=== PATIENT | male | born 1995 | race African-American/Black ===

== ENCOUNTER 2022-04-09 10:02 | Emergency (ER) | payer MEDICAID, SELFPAY ==
[2022-04-09 10:11] VITALS: BP 147/104; PULSE 65; RESP 18; TEMP 36.9; O2SAT 60; BMI 18.6
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
[2022-04-09 10:52] LABS: Appearance Urine Clear (Clear); Bilirubin Urine Negative (Negative); Blood Urine Trace-intact (Negative); Color Urine Yellow (Yellow); Glucose Urine Negative (Negative); Ketones Urine Trace (Negative); Leukocyte Esterase Urine Negative (Negative); Nitrite Urine Negative (Negative); Protein Urine Trace (Negative); Specific Gravity Urine 1.025 (1.000-1.030); pH Urine 6.5 (5.0-8.5)
--- NOTE | 2022-04-09 10:58 | ED.NURSE ---
Patient stated that he is homeless. His granny is letting him stay with her for now but would like to talk to a director of social media marketing to get more information on shelters. Call placed to geriatric social work professor.
[2022-04-09 11:04] LABS: Amphetamine Screen Urine Negative (Negative); Barbiturate Screen Urine Negative (Negative); Benzodiazepines Screen Urine Negative (Negative); Cannabinoid Screen Urine POSITIVE (Negative); Cocaine Screen Urine Negative (Negative); Methadone Screen Urine Negative (Negative); Methamphetamines Screen Urine Negative (Negative); Opiate Screen Urine Negative (Negative); Oxycodone Screen Urine Negative (Negative); Phencyclidine Screen Urine Negative (Negative); Tricyclic Antidepressant Urine Negative (Negative)
[2022-04-09 11:10] LABS: RBC Urine 0-2 (0-2); WBC Urine 0-2 (0-5)
--- NOTE | 2022-04-09 11:14 | ED.NURSE ---
Patient complaining about the bottom of feet hurting. Offered ice and a pillow to see if this helps. Patient accepted this intervention.
--- NOTE | 2022-04-09 11:47 | PC.SOCIAL ---
Met with pt. who is homeless. Gave pt. resources on the area homeless shelters in the [facility], which pt. was familiar with. Also gave pt. information on the [facility] for housing assistance. Pt. wants to discharge to his grandmother's in [place]. A one time taxi voucher will be given.
--- NOTE | 2022-04-09 13:03 | ED.NURSE ---
Pt d/c to home with ride from [place]
== END 2022-04-09 13:04 | disposition home or self-care (01) ==
PROVIDERS: Emergency Provider Family Medicine
DX: M54.2 Cervicalgia (principal); R30.0 Dysuria; L29.0 Pruritus ani
CPT/HCPCS: 80306; 81001; 99283; 99284